=== PATIENT | female | born 1995 | race Hispanic/Latino ===

== ENCOUNTER 2017-03-05 17:18 | Emergency (ER) | payer BC ==
[2017-03-05] MEDS ORDERED: Acetaminophen 500 MG TAB ONE (17:30)
== END 2017-03-05 18:48 | disposition home or self-care (01) ==
LOC: NAV ERS 17:18
DX: B34.9 Viral infection, unspecified (principal); J45.909 Unspecified asthma, uncomplicated
CPT/HCPCS: 99283

== ENCOUNTER 2017-03-09 14:22 | Emergency (ER) | payer BC ==
[2017-03-09] MEDS ORDERED: Ibuprofen 800 MG TAB ONE (14:51)
== END 2017-03-09 15:00 | disposition home or self-care (01) ==
LOC: NAV ERS 14:22
DX: L04.9 Acute lymphadenitis, unspecified (principal); D64.9 Anemia, unspecified
CPT/HCPCS: 99283

== ENCOUNTER 2017-06-02 22:36 | Emergency (ER) | payer BC ==
[2017-06-02 23:01] LABS: Bilirubin Negative (Negative); Blood, Urine Moderate (Negative); Clarity Clear (Clear); Glucose, Urine (Dipstick) Negative (Negative); Leukocyte Trace (Negative); Nitrite Positive (Negative); Protein, Urine (Dipstick) Negative (Neg-Trace); Urobilinogen 0.2 mg/dL (0.2-1.0); pH, Urine 7.5 (5.0-9.0)
[2017-06-02 23:09] LABS: Bacteria/HPF Rare-Few HPF (None Seen); WBC/HPF 0-3 HPF (0-3)
[2017-06-02] MEDS ORDERED: Ondansetron ODT 4 MG TAB ONE (23:10)
== END 2017-06-02 23:18 | disposition home or self-care (01) ==
LOC: NAV ERS 22:36
DX: N39.0 Urinary tract infection, site not specified (principal); R11.2 Nausea with vomiting, unspecified; J45.909 Unspecified asthma, uncomplicated; D64.9 Anemia, unspecified
CPT/HCPCS: 81003; 81015; 99284; Q0162

== ENCOUNTER 2017-06-19 16:15 | Emergency (ER) | payer BC ==
[2017-06-19] MEDS ORDERED: Acetaminophen 500 MG TAB ONE (16:54)
--- NOTE | 2017-06-19 17:10 | RAD ---
CHEST TWO VIEWS: 06/19/17 HISTORY: 22-year-old female with history of cough and sore throat. Heart size is within normal limits. The lungs are clear. No pneumonia, edema, or pleural effusion. IMPRESSION: No acute intrathoracic disease. No evidence for pneumonia. POS: [facility]
--- NOTE | 2017-06-19 17:14 | RAD ---
SOFT TISSUE NECK TWO VIEWS: 06/19/17 HISTORY: 22-year-old female with history of cough and sore throat. The epiglottis appears to be within normal limits. No evidence for an overt foreign body. No retropha ryngeal soft tissue mass. The glottis and subglottic regions appear unremarkable. IMPRESSION: Unremarkable soft tissue neck. POS: [facility]
== END 2017-06-19 17:50 | disposition home or self-care (01) ==
LOC: NAV ERS 16:15
DX: J04.0 Acute laryngitis (principal); J45.909 Unspecified asthma, uncomplicated
CPT/HCPCS: 70360; 71046; 87081; 87430; 87804

== ENCOUNTER 2018-01-07 00:03 | Emergency (ER) | payer BC, SELFPAY ==
[2018-01-07] MEDS ORDERED: Acetaminophen/Codeine 30-300mg Tablet ONE (01:53)
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
== END 2018-01-07 02:05 | disposition home or self-care (01) ==
LOC: NAV ERS 00:03
DX: S06.9X9A Unspecified intracranial injury with loss of consciousness of unspecified duration, initial encounter (principal); S01.311A Laceration without foreign body of right ear, initial encounter; S80.12XA Contusion of left lower leg, initial encounter; S80.11XA Contusion of right lower leg, initial encounter; S05.11XA Contusion of eyeball and orbital tissues, right eye, initial encounter; J45.909 Unspecified asthma, uncomplicated; F41.9 Anxiety disorder, unspecified; F32.9 Major depressive disorder, single episode, unspecified; F17.210 Nicotine dependence, cigarettes, uncomplicated; Z79.899 Other long term (current) drug therapy; V09.9XXA Pedestrian injured in unspecified transport accident, initial encounter
CPT/HCPCS: 70450; 70486; 71046

== ENCOUNTER 2018-04-15 19:04 | Emergency (ER) | payer SELFPAY ==
[2018-04-15] MEDS ORDERED: Ibuprofen 200 MG TAB ONE (19:29)
--- NOTE | 2018-04-15 21:35 | RAD ---
TWO VIEWS CHEST: 04/15/18 HISTORY: Cough, congestion, chest pressure for two days. PA and lateral views of the chest obtained on 04/15/18. Comparison made to previous exam from 01/07/18. Two views chest demonstrate the lungs to be well aerated. No evidence of active intrathoracic disease seen. No evidence of effusions, pneumonia or pneumothorax seen. No evidence of free intraperitoneal air seen. IMPRESSION: Unremarkable two views chest. POS: [facility]
== END 2018-04-15 22:00 | disposition home or self-care (01) ==
LOC: NAV ERS 19:04
DX: J20.9 Acute bronchitis, unspecified (principal); M94.0 Chondrocostal junction syndrome [Tietze]; J45.909 Unspecified asthma, uncomplicated; F41.9 Anxiety disorder, unspecified; F32.9 Major depressive disorder, single episode, unspecified; F17.210 Nicotine dependence, cigarettes, uncomplicated; Z79.899 Other long term (current) drug therapy
CPT/HCPCS: 71046; 84484; 87804; 93005; J7620

== ENCOUNTER 2019-02-11 10:49 | Emergency (ER) | payer SELFPAY ==
[2019-02-11] MEDS ORDERED: Benzonatate 100 MG CAP ONE ×2 (11:18→11:19)
[2019-02-11] MEDS ORDERED: Budesonide 0.5 MG/2 ML NEB ONE (11:34)
[2019-02-11] MEDS ORDERED: methylPREDNISolone Acetate 40 mg/ml Vial ONE (11:34)
== END 2019-02-11 12:04 | disposition home or self-care (01) ==
LOC: NAV ERS 10:49
DX: J45.901 Unspecified asthma with (acute) exacerbation (principal); F41.9 Anxiety disorder, unspecified; F32.9 Major depressive disorder, single episode, unspecified; Z87.891 Personal history of nicotine dependence; Z79.899 Other long term (current) drug therapy
CPT/HCPCS: 94640; 96372; J1030; J7620; J7626

== ENCOUNTER 2019-03-12 05:46 | Emergency (ER) | payer SELFPAY ==
[2019-03-12 06:19] LABS: Amphetamine Not Detected (NotDetected); Barbiturates Screen Not Detected (NotDetected); Benzodiazepine Screen Not Detected (NotDetected); Cocaine Metabolite Screen Not Detected (NotDetected); Medtox Control Line Valid? VALID (VALID); Methadone Not Detected (NotDetected); Methamphetamine Not Detected (NotDetected); Opiate Screen Not Detected (NotDetected); Oxycodone Screen Not Detected (NotDetected); Phencyclidine (PCP) Not Detected (NotDetected); THC/Cannabinoid Screen Not Detected (NotDetected); Tricyclic Screen Not Detected (NotDetected)
[2019-03-12 06:20] LABS: Bilirubin Negative (Negative); Blood, Urine Large (Negative); Clarity Hazy (Clear); Glucose, Urine (Dipstick) Negative (Negative); Leukocyte Negative (Negative); Nitrite Negative (Negative); Protein, Urine (Dipstick) 30 mg/dL (Neg-Trace); Urobilinogen 0.2 mg/dL (Less than 2)
[2019-03-12 06:21] LABS: Pregnancy Test - Urine (BHCG) Negative (Negative); Pregu Control Background? CLEAR/WHITE (CLR/WHITE); Pregu Control Bar Appear? YES (CONTROL BAR); Specific Gravity 1.025 (1.002-1.036)
[2019-03-12 06:22] LABS: #Basophils 0.1 thou/uL (0.0-0.2); #Eosinphils 0.3 thou/uL (0.0-0.7); #Lymphocytes 3.1 thou/uL (1.20-3.40); #Monocytes 0.5 thou/uL (0.11-0.59); #Neutrophils 5.5 thou/uL (1.40-6.50); %Eosinophils 2.7 % (0.0-10.0); %Lymphocytes 33.3 % (21.0-51.0); %Monocytes 4.8 % (0.0-10.0); %Neutrophils 58.2 % (42.0-75.0); Hemoglobin 13.5 g/dL (12.0-16.0); Mean Corpuscular HGB CONC 33.1 g/dL (32.0-36.0); Mean Corpuscular Hemoglobin 26.6 pg (27.0-31.0); Mean Corpuscular Volume 80.3 fL (78.0-98.0); Mean Platelet Volume 6.3 fL (7.4-10.4); Platelet Count 350 thou/uL (130-400); RBC Distribution Width 12.1 % (11.5-14.5); Red Blood Cell (RBC) Count 5.08 mill/uL (4.20-5.40); White Blood Cell (WBC) Count 9.4 thou/uL (4.8-10.8)
[2019-03-12 06:25] LABS: Bacteria/HPF Rare-Few HPF (None Seen); Squamous Epithelial 0-3 HPF (0-3); WBC/HPF 0-3 HPF (0-3)
[2019-03-12 06:38] LABS: ALT (SGPT) 20 U/L (8-55); AST (SGOT) 16 U/L (5-34); Albumin 4.5 g/dL (3.5-5.0); Alcohol 201 mg/dL (Less than 10); Alkaline Phosphatase 95 U/L (40-110); Anion Gap 17 mmol/L (10-20); BUN (Urea Nitrogen) 9 mg/dL (7.0-18.7); Bilirubin, Total 0.2 mg/dL (0.2-1.2); Calc. Creatinine Clearance 0 mL/min (70-130); Calcium 9.2 mg/dL (7.8-10.44); Carbon Dioxide 22 mmol/L (22-29); Chloride 108 mmol/L (98-107); Estimated GFR-MDRD Greater than 90; Globulin 3.1 g/dL (2.4-3.5); Glucose 105 mg/dL (70-105); Potassium 3.2 mmol/L (3.5-5.1); Protein, Total 7.6 g/dL (6.0-8.3); Sodium 144 mmol/L (136-145)
--- NOTE | 2019-03-12 07:35 | CT ---
CT BRAIN WITHOUT CONTRAST: HISTORY: Altered mental status. COMPARISON: 01/07/2018 TECHNIQUE: Multiple contiguous axial images were obtained in a CT of the brain without contrast. FINDINGS: The brain is normal in morphology and attenuation without focal lesions or confluent areas of infarct ion. There is no evidence of hydrocephalus, intracranial hemorrhage or extraaxial fluid collection. The calvarium and overlying soft tissues are unremarkable. The visualized paranasal sinuses and masto id air cells are well aerated. IMPRESSION: No evidence of acute intracranial abnormality. POS: [facility]
== END 2019-03-12 07:00 | disposition home or self-care (01) ==
LOC: NAV ERS 05:46
DX: F10.129 Alcohol abuse with intoxication, unspecified (principal); J45.909 Unspecified asthma, uncomplicated; F41.9 Anxiety disorder, unspecified; F32.9 Major depressive disorder, single episode, unspecified; F17.210 Nicotine dependence, cigarettes, uncomplicated; Z79.899 Other long term (current) drug therapy; Y90.7 Blood alcohol level of 200-239 mg/100 ml
CPT/HCPCS: 70450; 80053; 80306; 80307; 81003; 81015; 81025; 85025

== ENCOUNTER 2019-08-16 23:23 | Emergency (ER) | payer OTHER, SELFPAY ==
[2019-08-16] MEDS ORDERED: Acetaminophen 500 MG TAB ONE (23:51)
== END 2019-08-17 00:09 | disposition home or self-care (01) ==
LOC: NAV ERS 23:23
DX: J02.9 Acute pharyngitis, unspecified (principal); R50.9 Fever, unspecified; R09.81 Nasal congestion; R05 Cough; J34.89 Other specified disorders of nose and nasal sinuses; Z20.828 Contact with and (suspected) exposure to other viral communicable diseases; J45.909 Unspecified asthma, uncomplicated; F41.9 Anxiety disorder, unspecified; F32.9 Major depressive disorder, single episode, unspecified; F17.210 Nicotine dependence, cigarettes, uncomplicated
CPT/HCPCS: 87081; 87430; 99283

== ENCOUNTER 2019-12-27 17:11 | Emergency (ER) | payer SELFPAY ==
[2019-12-27] MEDS ORDERED: Sodium Chloride 0.9% 1,000 ML ONE (17:43)
[2019-12-27] MEDS ORDERED: Acetaminophen 500 MG TAB ONE (17:43)
[2019-12-27] MEDS ORDERED: Ondansetron PF 4 MG/2 ML Vial ONE (17:43)
[2019-12-27] MEDS ORDERED: Sodium Chloride 0.9% 500 ML ONE (17:59)
[2019-12-27] MEDS ORDERED: cefTRIAXone\\ROCEPHIN 2 GM VIAL ONE (17:59)
[2019-12-27] MEDS ORDERED: Sodium Chloride 0.9% 100 ML ONE (18:01)
[2019-12-27 18:08] LABS: ALT (SGPT) 32 U/L (8-55); AST (SGOT) 18 U/L (5-34); Albumin 4.2 g/dL (3.5-5.0); Alkaline Phosphatase 86 U/L (40-110); Anion Gap 13 mmol/L (10-20); BUN (Urea Nitrogen) 14 mg/dL (7.0-18.7); Bilirubin, Total 0.6 mg/dL (0.2-1.2); Calc. Creatinine Clearance 0 mL/min (70-130); Calcium 8.9 mg/dL (7.8-10.44); Carbon Dioxide 23 mmol/L (22-29); Chloride 103 mmol/L (98-107); Estimated GFR-MDRD Greater than 90; Globulin 3.2 g/dL (2.4-3.5); Glucose 120 mg/dL (70-105); Potassium 3.8 mmol/L (3.5-5.1); Protein, Total 7.4 g/dL (6.0-8.3); Sodium 135 mmol/L (136-145)
[2019-12-27 18:12] LABS: Band 3 % (5-11); Hemoglobin 13.8 g/dL (12.0-16.0); Lymphocytes 8 % (21-51); MDiff Complete? YES; Mean Corpuscular HGB CONC 32.9 g/dL (32.0-36.0); Mean Corpuscular Hemoglobin 28.1 pg (27.0-31.0); Mean Corpuscular Volume 85.3 fL (78.0-98.0); Mean Platelet Volume 6.2 fL (7.4-10.4); Monocytes 6 % (0-10); Neutrophil 83 % (42-75); Platelet Count 272 thou/uL (130-400); Platelet Morphology Comment Appears Adequate; RBC Distribution Width 11.2 % (11.5-14.5); Red Blood Cell (RBC) Count 4.91 mill/uL (4.20-5.40); White Blood Cell (WBC) Count 20.6 thou/uL (4.8-10.8)
--- NOTE | 2019-12-27 18:32 | RAD ---
CHEST ONE VIEW: 12/27/19 HISTORY: Cough. COMPARISON: Chest radiograph 04/15/18 FINDINGS: The patient is rotated to the right for which there is a pulmonary vessel seen en face giving the arline earance of a nodule although this is felt to be due to rotation. No confluent air space consolidation , pneumothorax or effusion. No acute osseous abnormality. IMPRESSION: No acute intrathoracic abnormality. POS: [facility]
[2019-12-27 18:38] LABS: Bilirubin Negative (Negative); Blood, Urine Large (Negative); Glucose, Urine (Dipstick) Negative (Negative); Ketone, Urine Negative (Negative); Leukocyte Negative (Negative); Nitrite Positive (Negative); Protein, Urine (Dipstick) Trace mg/dL (Neg-Trace); Specific Gravity, Urine 1.015 (1.005-1.030)
[2019-12-27 18:41] LABS: Clarity SL HAZY (Clear)
[2019-12-27 18:48] LABS: Bacteria/HPF 4+ HPF (None Seen)
[2019-12-28 22:54] LABS: SARS-CoV-2 MS2 Positive; SARS-CoV-2 N Gene Negative; SARS-CoV-2 S Gene Negative; SARS-CoV-2 by NAA Not Detected (NotDetected); SARS-CoV-2 orf1ab Negative
== END 2019-12-27 19:38 | disposition home or self-care (01) ==
LOC: NAV ERS 17:11
DX: R50.9 Fever, unspecified (principal); R51.9 Headache, unspecified; Z20.828 Contact with and (suspected) exposure to other viral communicable diseases; J45.909 Unspecified asthma, uncomplicated; F17.210 Nicotine dependence, cigarettes, uncomplicated; F41.9 Anxiety disorder, unspecified; F32.9 Major depressive disorder, single episode, unspecified; Z79.899 Other long term (current) drug therapy
CPT/HCPCS: 71045; 80053; 81003; 81015; 83605; 85025; 87040; 87077; 87081; 87086; 87430; 87635; 96365; 96375; J0696; J2405; J3490; J7030; J7050; U0003

== ENCOUNTER 2020-01-06 14:06 | Emergency (ER) | payer SELFPAY ==
[2020-01-06] MEDS ORDERED: methylPREDNISolone Acetate 40 mg/ml Vial ONE (14:39)
[2020-01-07 18:38] LABS: SARS-CoV-2 MS2 Positive; SARS-CoV-2 N Gene Negative; SARS-CoV-2 S Gene Negative; SARS-CoV-2 by NAA Not Detected (NotDetected); SARS-CoV-2 orf1ab Negative
== END 2020-01-06 15:00 | disposition home or self-care (01) ==
LOC: NAV ERS 14:06
DX: J20.9 Acute bronchitis, unspecified (principal); J45.909 Unspecified asthma, uncomplicated; F32.9 Major depressive disorder, single episode, unspecified; F41.9 Anxiety disorder, unspecified; F17.210 Nicotine dependence, cigarettes, uncomplicated; Z20.828 Contact with and (suspected) exposure to other viral communicable diseases; Z79.899 Other long term (current) drug therapy
CPT/HCPCS: 87635; 96372; 99284; J2920; U0003

== ENCOUNTER 2020-05-31 18:56 | Emergency (ER) | payer OTHER, SELFPAY ==
[2020-06-01 17:58] LABS: SARS-CoV-2 PCR by NAA Not Detected (NotDetected)
== END 2020-05-31 19:45 | disposition home or self-care (01) ==
LOC: NAV ERS 18:56
DX: R63.0 Anorexia (principal); Z20.822 Contact with and (suspected) exposure to COVID-19; J45.909 Unspecified asthma, uncomplicated; F17.210 Nicotine dependence, cigarettes, uncomplicated
CPT/HCPCS: 87635; 99283; U0003; U0005

== ENCOUNTER 2021-02-12 13:39 | Emergency (ER) | payer OTHER ==
[2021-02-12] MEDS ORDERED: Acetaminophen 325 MG TAB ONE (14:00)
[2021-02-12] MEDS ORDERED: Ibuprofen 200 MG TAB ONE (14:00)
[2021-02-13 12:00] LABS: SARS-CoV-2 PCR by NAA DETECTED (NotDetected)
== END 2021-02-12 14:04 | disposition home or self-care (01) ==
LOC: NAV ERS 13:39
DX: U07.1 COVID-19 (principal); G43.909 Migraine, unspecified, not intractable, without status migrainosus; F17.210 Nicotine dependence, cigarettes, uncomplicated; J45.909 Unspecified asthma, uncomplicated; Z79.899 Other long term (current) drug therapy
CPT/HCPCS: 87804; 99283; U0003; U0005

== ENCOUNTER 2021-08-11 07:56 | Emergency (ER) | payer OTHER | END 2021-08-11 08:29 | disposition home or self-care (01) | LOC: NAV ERS 07:56 | DX: J06.9 Acute upper respiratory infection, unspecified (principal); B34.9 Viral infection, unspecified; Z20.822 Contact with and (suspected) exposure to COVID-19; G43.909 Migraine, unspecified, not intractable, without status migrainosus; Z79.899 Other long term (current) drug therapy | CPT/HCPCS: 99283; U0003; U0005 ==

== ENCOUNTER 2022-01-22 13:55 | Emergency (ER) | payer SELFPAY ==
[2022-01-22] MEDS ORDERED: Ketorolac Tromethamine 30 MG/ML VIAL ONE (14:26)
== END 2022-01-22 14:59 | disposition home or self-care (01) ==
LOC: NAV ERS 13:55
DX: B34.9 Viral infection, unspecified (principal); Z20.822 Contact with and (suspected) exposure to COVID-19
CPT/HCPCS: 87081; 87430; 87804; 96372; 99283; J1885; U0003; U0005

== ENCOUNTER 2022-05-08 18:49 | Emergency (ER) | payer SELFPAY ==
[2022-05-08] MEDS ORDERED: Ketorolac Tromethamine 60 MG/2 ML VIAL ONE (19:28)
[2022-05-08] MEDS ORDERED: Lidocaine Viscous Sol 2% 15 ml UD Cup ONE (19:36)
[2022-05-08] MEDS ORDERED: Mag-Al Plus 1200 MG/1200 MG/120 MG/30 ML UDCUP ONE (19:36)
== END 2022-05-08 20:03 | disposition home or self-care (01) ==
LOC: NAV ERS 18:49
DX: R13.10 Dysphagia, unspecified (principal); J45.909 Unspecified asthma, uncomplicated; G43.909 Migraine, unspecified, not intractable, without status migrainosus
CPT/HCPCS: 96372; 99284; J1885

== ENCOUNTER 2022-06-08 15:16 | Emergency (ER) | payer SELFPAY ==
[2022-06-08 15:59] LABS: Bilirubin Negative (Negative); Blood, Urine Large (Negative); Glucose, Urine (Dipstick) Negative (Negative); Ketone, Urine Negative (Negative); Leukocyte Negative (Negative); Nitrite Negative (Negative); Protein, Urine (Dipstick) Negative (Neg-Trace); Urobilinogen 0.2 mg/dL (Less than 2)
[2022-06-08 16:01] LABS: Clarity Hazy (Clear); Specific Gravity, Urine 1.024 (1.002-1.036)
[2022-06-08 16:03] LABS: Pregnancy Test - Urine (BHCG) Negative (Negative); Pregu Control Background? CLEAR/WHITE (CLR/WHITE); Pregu Control Bar Appear? YES (CONTROL BAR); Specific Gravity 1.024 (1.002-1.036)
[2022-06-08 16:12] LABS: Bacteria/HPF Rare-Few HPF (None Seen); Trichomonas/HPF 2+ HPF (None Seen)
[2022-06-08] MEDS ORDERED: Ibuprofen 200 MG TAB ONE (16:19)
[2022-06-08] MEDS ORDERED: Ondansetron ODT 4 MG TAB ONE (17:09)
[2022-06-08] MEDS ORDERED: Azithromycin 250 MG TAB ONE (17:19)
== END 2022-06-08 17:41 | disposition home or self-care (01) ==
LOC: NAV ERS 15:16
DX: S39.012A Strain of muscle, fascia and tendon of lower back, initial encounter (principal); R31.9 Hematuria, unspecified; A59.01 Trichomonal vulvovaginitis; F17.210 Nicotine dependence, cigarettes, uncomplicated; X58.XXXA Exposure to other specified factors, initial encounter; Z79.899 Other long term (current) drug therapy
CPT/HCPCS: 74176; 81003; 81015; 81025; Q0162

== ENCOUNTER 2024-01-24 13:15 | Emergency (ER) | payer SELFPAY ==
[2024-01-24] MEDS ORDERED: Ipratropium/Albuterol 3 ML NEB ONE (14:28)
== END 2024-01-24 15:20 | disposition home or self-care (01) ==
LOC: NAV ERS 13:15
DX: J45.909 Unspecified asthma, uncomplicated (principal)
CPT/HCPCS: 71045; J7620